=== PATIENT | female | born 1960 | race Caucasian/White ===

== ENCOUNTER 2017-11-19 21:06 | Inpatient (IN) | payer MEDICARE ==
[~2017-11-19] VITALS: Ht 170.2 cm; Wt 74.4 kg
[~2017-11-19 21:06] MED LIST: LEVO25TA7 PO; VENL75CA56 PO
--- NOTE | 2017-11-19 21:30 | NUR ---
PT AMBULATORY TO ER BED 6. PT BIB FAMILY FROM HOME C/O ABD PAIN X 1 DAY. PT PLACED ON TIMBER SETTER. VSS/RESP EVEN UNLABORED/NAD NOTED/SKIN WARM AND DRY/DENIES N-V-D/AOX4. AWAITING MD STEEL.
--- NOTE | 2017-11-19 22:15 | NUR ---
LAB AT BEDSIDE FOR DRAW.
--- NOTE | 2017-11-19 22:30 | NUR ---
AT BEDSIDE FOR EVAL.
[2017-11-19 22:42] LABS: CALCIUM, SERUM 9.4 mg/dL (8.5-10.1); CREATININE 0.6 mg/dL (0.6-1.3); POTASSIUM 3.7 mmol/L (3.5-5.1)
--- NOTE | 2017-11-19 22:42 | NUR ---
PT TO CT VIA STRETCHER, VSS.
[2017-11-19 22:44] LABS: BASOPHILS # (AUTO) 0.1 /CMM (0.0-0.2); BASOPHILS % (AUTO) 0.8 % (0.0-2.0); EOSINOPHILS # (AUTO) 0.2 /CMM (0.0-0.7); EOSINOPHILS % (AUTO) 1.8 % (0.0-6.0); HEMATOCRIT 39 % (33-45); HEMOGLOBIN 13.1 g/dL (11.5-14.8); LYMPHOCYTES % (AUTO) 23.6 % (20.0-44.0); MEAN CORPUSCULAR HEMOGLOBIN 30 PG (26.0-33.0); MEAN CORPUSCULAR HGB CONC 34 g/dl (31.0-36.0); MEAN CORPUSCULAR VOLUME 91 fL (82-100); MONOCYTES # (AUTO) 0.9 /CMM (0.1-1.30); MONOCYTES % (AUTO) 6.9 % (2.0-12.0); NEUTROPHILS # (AUTO) 8.4 /CMM (1.8-8.9); NEUTROPHILS % (AUTO) 66.9 % (43.0-81.0); PLATELET COUNT (AUTO) 360 /CMM (150-450); RDW COEFFICIENT OF VARIATION 14.6 (11.5-15.0); WHITE BLOOD COUNT (AUTO) 12.6 K/uL (4.3-11.0)
[2017-11-19 22:48] LABS: BILIRUBIN,TOTAL 0.3 mg/dL (0.2-1.0)
--- NOTE | 2017-11-19 22:53 | NUR ---
PT BACK FROM CT.
--- NOTE | 2017-11-19 22:59 | NUR ---
VO PER MD CANCEL URINALYSIS.
--- NOTE | 2017-11-19 23:07 | NUR ---
WAS ABLE TO OBTAIN A URINE SPECIMEN. MADE AWARE. URINE SPECIMEN SENT TO THE LAB.
[2017-11-19 23:28] LABS: APPEARANCE,URINE CLEAR (CLEAR); BILIRUBIN,URINE NEGATIVE (NEGATIVE); BLOOD, URINE NEGATIVE Ery/uL (NEGATIVE); COLOR,URINE YELLOW (YELLOW); KETONES,URINE TRACE (NEGATIVE); LEUKOCYTE ESTERASE ,URINE NEGATIVE (NEGATIVE); NITRITE, URINE NEGATIVE (NEGATIVE); PH,URINE 5.5 (5.0-8.0); PROTEIN,URINE NEGATIVE (NEGATIVE); UGLUCOSE NEGATIVE (NEGATIVE); UROBILINOGEN,URINE 0.2 EU/dL (0.2)
[2017-11-19 23:38] LABS: BACTERIA,URINE None seen /HPF (None Seen); RBC,URINE NONE SEEN /HPF (0-2); SQUAMOUS EPITHELIAL CELL,UR Few /HPF (None Seen); WBC,URINE 0-2 /HPF (0-3)
[2017-11-19] MEDS ORDERED: ONDANSETRON HCL/PF 4 MG/2 ML VIAL ONE (23:52)
[2017-11-19] MEDS ORDERED: MORPHINE SULFATE INJ 4 MG/ML DISP.SYRIN ONE (23:52)
[2017-11-20] MEDS ORDERED: ONDANSETRON HCL/PF 4 MG/2 ML VIAL IV ONE
[2017-11-20] MEDS ORDERED: IV NS 0.9% 500 ML BAG IV ONE
[2017-11-20] MEDS ORDERED: MORPHINE SULFATE INJ 2 MG/ML DISP.SYRIN IV ONE
--- NOTE | 2017-11-20 01:08 | NUR ---
PT SPEAKING WITH AT THE BEDSIDE. VSS.
[2017-11-20] MEDS ORDERED: HYDROMORPHONE 1 MG/1 ML DISP.SYRIN ONE ×2 (01:27→01:31)
[2017-11-20] MEDS ORDERED: HYDROMORPHONE 1 MG/1 ML DISP.SYRIN IV ONE (01:30)
--- NOTE | 2017-11-20 02:52 | NUR ---
M/S 308.1
--- NOTE | 2017-11-20 03:06 | NUR ---
REPORT CALLED TO SG HERNANDEZ FOR ANNA.
[2017-11-20 03:20] VITALS: BP 133/73
--- NOTE | 2017-11-20 03:20 | NUR ---
MS RN OPENING NOTES: RECEIVED PT VIA JIMBO. PT A/OX4. PT ON ROOM AIR AND TOLERATING WELL. PT COMPLAINING OF MILD LEFT ABDOMEN PAIN. PT HAS IV ON L AC #20G AND IS PATENT AND INTACT. CALL LIGHT WITHIN PT'S REACH. BED KEPT IN LOW, LOCKED POSITION, AND SIDE RAILS X 2UP. PT'S PERSONAL CANE AT BEDSIDE. AWAITING FOR ADMITTING ORDERS TO BE PLACED BY GLASSWARE VERIFIER. WILL CONTINUE TO MONITOR PT.
--- NOTE | 2017-11-20 03:28 | NUR ---
PT TRANSPORTED TO /S 308-1 VIA STRETCHER WITH RN. CACERES.
[2017-11-20 03:30] VITALS: BP 133/73
[2017-11-20] MEDS ORDERED: ACETAMINOPHEN 325 MG TABLET PO PRN (03:30)
[2017-11-20] MEDS ORDERED: IV NS 0.9% 1,000 ML IV PRN (03:30)
[2017-11-20] MEDS ORDERED: ONDANSETRON HCL/PF 4 MG/2 ML VIAL IVP PRN (03:30)
[2017-11-20] MEDS ORDERED: ENOXAPARIN SODIUM 40 MG/0.4 ML DISP.SYRIN SQ SCH (03:30)
[2017-11-20] MEDS ORDERED: MORPHINE SULFATE INJ 2 MG/ML DISP.SYRIN IV PRN (03:30)
[2017-11-20] MEDS ORDERED: Z GUARD REMEDY 2 OZ OINT TP PRN (03:30)
[2017-11-20] MEDS ORDERED: ZOLPIDEM TARTRATE 5 MG TABLET PO PRN (03:30)
[2017-11-20] MEDS ORDERED: MAG HYDROX/AL HYDROX/SIMETH 30 ML UDC PO PRN (03:30)
[2017-11-20] MEDS ORDERED: HYDROCODONE/APAP 5/325MG 1 EACH TABLET ONE (03:46)
[2017-11-20] MEDS ORDERED: ENOXAPARIN SODIUM 40 MG/0.4 ML DISP.SYRIN SQ ONE (03:47)
[2017-11-20] MEDS: HYDROCODONE/APAP 5/325MG 1 EACH TABLET PO PRN ×4 (03:53→17:19)
[2017-11-20] MEDS ORDERED: MORPHINE SULFATE INJ 4 MG/ML DISP.SYRIN ONE (06:41)
--- NOTE | 2017-11-20 06:51 | NUR ---
MS RN NOTES: CHARGE NURSE OVERRODE MORPHINE 4MG IV SINCE NO 2MG AVAILABLE. PUT IN ORDER FOR MORPHINE 2MG IV SO HALF OF THE MORPHINE 4MG CA BE WASTED. WASTED MED. PT COMPLAINING OF PAIN AND INFORMED HER THAT NORCO 5 IS NOT AVAILABLE AT THE MOMENT BUT MORPHINE. PT WAS ADMINISTERED THE MORPHINE VIA IV. WILL CONTINUE TO MONITOR PT.
[2017-11-20] MEDS ORDERED: MORPHINE SULFATE INJ 4 MG/ML DISP.SYRIN IV PRN (07:00)
--- NOTE | 2017-11-20 07:24 | NUR ---
MS RN CLOSING NOTES: ALL NEEDS WERE ATTENDED AND ANTICIPATED FOR. PT SITTING UP IN BED WATCHING TELEVISION. PT A/OX4. PT ON ROOM AIR AND TOLERATING WELL. PT HAS IV ON L AC #20G AND IS BEING INFUSED WITH NS AT 75ML/HR. CALL LIGHT WITHIN PT'S REACH. BED KEPT IN LOW, LOCKED POSITION, AND SIDE RAILS X 2UP. PT'S PERSONAL CANE AT BEDSIDE. INFORMED PT THAT SHE CANNOT HAVE ANYTHING TO EAT OR DRINK UNLESS IT IS A MEDICATION. ENDORSED TO AM NURSE FOR ANNA.
--- NOTE | 2017-11-20 07:53 | NUR ---
RN OPENING NOTES RECEIVED PT. PT IS STABLE AND RESTING IN BED. A/OX4. NO S/S OF RESP DISTRESS/SOB. PT HAS C/O ABD PAIN, TOLERABLE AT THIS MOMENT. CURRENTLY NPO EXCEPT FOR MEDS. IV ACCESS LOCATED ON LEFT AC 20G INFUSING NS AT 75 ML/HR. SAFETY MEASURES IN PLACE, CALL LIGHT WITHIN REACH. WILL CONTINUE TO MONITOR.
[2017-11-20 08:00] VITALS: BP 127/76
[2017-11-20] MEDS ORDERED: LEVO137T2 PO (08:09)
[2017-11-20] MEDS ORDERED: LETR2.5T PO (08:09)
[2017-11-20] MEDS ORDERED: IV NS 0.9% 250 ML IV ONE (11:27)
[2017-11-20] MEDS ORDERED: IOHEXOL-300 100 ML VIAL IV ONE (11:27)
[2017-11-20] MEDS ORDERED: CT SWABBABLE VALVE TRANS SET 1 EA INFUS.SET MC ONE (11:27)
--- NOTE | 2017-11-20 18:21 | NUR ---
DISCHARGE NOTE PT DISCHARGED TO HOME. VSS, NO S/S OF RESP DISTRESS OR SOB. PT HAS C/O MILD PAIN 3/10 AT TIME OF DISCHARGE. PAIN MEDICATION GIVEN 1 HOUR PRIOR TO TIME OF STIPPLER. ALL DISCHARGE INSTRUCTIONS REVIEWED WITH AND GIVEN TO PT. PT VERBALIZES UNDERSTANDING. ALL DISCHARGE PAPERWORK AND BELONGINGS LIST SIGNED, COPIED AND PLACED IN CHART. NO PHOTOS TAKEN PT'S SKIN IS INTACT. PT DID NOT RECEIVE PAIN MEDICATION PRESCRIPTION FOR ABDOMINAL PAIN. IV ACCESS REMOVED. PATIENT ID BAND REMOVED. PT LEFT HOSPITAL IN PRIVATE VEHICLE WITH .
[2017-11-21] MEDS ORDERED: ENOXAPARIN SODIUM 40 MG/0.4 ML DISP.SYRIN SQ SCH (09:00)
== END 2017-11-20 17:45 | disposition home or self-care (01) | DRG 760 ==
LOC: ER 21:06 → MED 11-20 02:53
PROVIDERS: ADMIT Nurse Practitioner Acute Care; ATTEND Nurse Practitioner Acute Care
DX: N83.202 Unspecified ovarian cyst, left side (principal); G71.0 Muscular dystrophy; D72.829 Elevated white blood cell count, unspecified; Z85.3 Personal history of malignant neoplasm of breast; Z90.13 Acquired absence of bilateral breasts and nipples; Z90.81 Acquired absence of spleen; Z88.2 Allergy status to sulfonamides
CPT/HCPCS: 36415; 76856-TC; 80048-TC; 80076-TC; 81000-TC; 83690-TC; 85025-TC; 87081-TC; A4606; J1170; J1650; J2270; J2405; J7030; J7040; J7050; Q9967; Z7610